=== PATIENT | male | born 2000 | race Caucasian/White ===

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

== ENCOUNTER 2021-04-21 10:40 | Emergency (ER) | payer BC ==
[2021-04-21 10:56] VITALS: RESP 18; TEMP 97.9
[2021-04-21 11:07] VITALS: BP 134/82; PULSE 76
--- NOTE | 2021-04-21 11:08 | ED ---
Arrhythmia/Palpitations HPI - General Chief Complaint: Arrhythmia/Palpitations Stated Complaint: Chest Pain Time Seen by Provider: 04/21/21 10:40 Source: patient, EMS, RN notes reviewed Mode of arrival: EMS Limitations: no limitations - History of Present Illness Initial Comments: 20-year-old male history of testicular cancer left side the past with one round of chemotherapy about a year ago sitting in class today nursing is going started developing limitations. Also increased heart rate. He was sent here for evaluation. Currently he is feeling improved he still feels some palpitations. No recent fevers chills nausea vomiting sweats MD Complaint: rapid heart beat, palpitations - Related Data Previous Rx's Medication Instructions Recorded Ibuprofen 800 mg PO Q6HR PRN #20 tablet 04/21/21 Allergies Allergy/AdvReac Type Severity Reaction Status Date / Time No Known Allergies Allergy Verified 04/21/21 11:58 Review of Systems ROS Statement: Those systems with pertinent positive or pertinent negative responses have been documented in the HPI. ROS Other: All systems not noted in ROS Statement are negative. Past Medical History Additional Past Medical History / Comment(s): left testicular CA History of Any Multi-Drug Resistant Organisms: None Reported Additional Past Surgical History / Comment(s): Left orchiectomy, R. ACL surgery Past Psychological History: No Psychological Hx Reported Smoking Status: Never smoker Past Alcohol Use History: None Reported Past Drug Use History: None Reported General Exam - General Exam Comments Initial Comments: This a well-developed well-nourished awake alert oriented times 3 male Limitations: no limitations General appearance: alert, anxious Head exam: Present: atraumatic, normocephalic, normal inspection Eye exam: Present: normal appearance, PERRL, EOMI. Absent: scleral icterus, conjunctival injection, periorbital swelling ENT exam: Present: normal exam, mucous membranes moist Neck exam: Present: normal inspection. Absent: tenderness, meningismus, lymphadenopathy Respiratory exam: Present: normal lung sounds bilaterally, chest wall tenderness. Absent: respiratory distress, wheezes, rales, rhonchi, stridor Cardiovascular Exam: Present: regular rate, normal rhythm, normal heart sounds. Absent: systolic murmur, diastolic murmur, rubs, gallop, clicks GI/Abdominal exam: Present: soft, normal bowel sounds. Absent: distended, tenderness, guarding, rebound, rigid Extremities exam: Present: normal inspection, full ROM, normal capillary refill. Absent: tenderness, pedal edema, joint swelling, calf tenderness Back exam: Present: normal inspection Neurological exam: Present: alert, oriented X3, CN II-XII intact Psychiatric exam: Present: normal affect, normal mood Skin exam: Present: warm, dry, intact, normal color. Absent: rash Course Vital Signs 04/21/21 04/21/21 10:49 11:06 Temperature 97.9 F Pulse Rate 100 76 Respiratory 18 18 Rate Blood Pressure 140/80 134/82 O2 Sat by Pulse 100 100 Oximetry Medical Decision Making - Medical Decision Making I did discuss [employer] the patient family patient's presentation consistent with costochondritis. He'll be placed on appropriate anti-inflammatory medication and did discuss this with him and his family. - Lab Data Result diagrams: 04/21/21 11:04 04/21/21 11:04 Lab Results 04/21/21 04/21/21 04/21/21 Range/Units 11:04 11:04 11:04 WBC 5.2 (4.0-11.0) k/uL RBC 4.91 (4.30-5.90) m/uL Hgb 15.4 (13.0-17.5) gm/dL Hct 46.2 (39.0-53.0) % MCV 94.2 (80.0-100.0) fL MCH 31.4 (25.0-35.0) pg MCHC 33.4 (31.0-37.0) g/dL RDW 11.8 (11.5-15.5) % Plt Count 197 (150-450) k/uL MPV 8.5 Neutrophils % 59 % Lymphocytes % 31 % Monocytes % 5 % Eosinophils % 2 % Basophils % 1 % Neutrophils # 3.1 (1.3-7.7) k/uL Lymphocytes # 1.6 (1.0-4.8) k/uL Monocytes # 0.3 (0-1.0) k/uL Eosinophils # 0.1 (0-0.7) k/uL Basophils # 0.0 (0-0.2) k/uL PT 12.1 H (9.0-12.0) sec INR 1.2 H (<1.2) APTT 24.0 (22.0-30.0) sec D-Dimer <0.17 (<0.60) mg/L FEU Sodium 138 (137-145) mmol/L Potassium 4.3 (3.5-5.1) mmol/L Chloride 103 (98-107) mmol/L Carbon Dioxide 24 (22-30) mmol/L Anion Gap 11 mmol/L BUN 17 (9-20) mg/dL Creatinine 1.05 (0.66-1.25) mg/dL Est GFR (CKD-EPI)AfAm >90 (>60 ml/min/1.73 sqM) Est GFR (CKD-EPI)NonAf >90 (>60 ml/min/1.73 sqM) Glucose 104 H (74-99) mg/dL Calcium 10.1 (8.4-10.2) mg/dL Magnesium 1.8 (1.6-2.3) mg/dL Total Bilirubin 0.9 (0.2-1.3) mg/dL AST 25 (17-59) U/L ALT 16 (4-49) U/L Alkaline Phosphatase 73 (38-126) U/L Troponin I (0.000-0.034) ng/mL Total Protein 7.6 (6.3-8.2) g/dL Albumin 4.6 (3.5-5.0) g/dL TSH 2.770 (0.465-4.680) mIU/L 04/21/21 Range/Units 11:04 WBC (4.0-11.0) k/uL RBC (4.30-5.90) m/uL Hgb (13.0-17.5) gm/dL Hct (39.0-53.0) % MCV (80.0-100.0) fL MCH (25.0-35.0) pg MCHC (31.0-37.0) g/dL RDW (11.5-15.5) % Plt Count (150-450) k/uL MPV Neutrophils % % Lymphocytes % % Monocytes % % Eosinophils % % Basophils % % Neutrophils # (1.3-7.7) k/uL Lymphocytes # (1.0-4.8) k/uL Monocytes # (0-1.0) k/uL Eosinophils # (0-0.7) k/uL Basophils # (0-0.2) k/uL PT (9.0-12.0) sec INR (<1.2) APTT (22.0-30.0) sec D-Dimer (<0.60) mg/L FEU Sodium (137-145) mmol/L Potassium (3.5-5.1) mmol/L Chloride (98-107) mmol/L Carbon Dioxide (22-30) mmol/L Anion Gap mmol/L BUN (9-20) mg/dL Creatinine (0.66-1.25) mg/dL Est GFR (CKD-EPI)AfAm (>60 ml/min/1.73 sqM) Est GFR (CKD-EPI)NonAf (>60 ml/min/1.73 sqM) Glucose (74-99) mg/dL Calcium (8.4-10.2) mg/dL Magnesium (1.6-2.3) mg/dL Total Bilirubin (0.2-1.3) mg/dL AST (17-59) U/L ALT (4-49) U/L Alkaline Phosphatase (38-126) U/L Troponin I <0.012 (0.000-0.034) ng/mL Total Protein (6.3-8.2) g/dL Albumin (3.5-5.0) g/dL TSH (0.465-4.680) mIU/L - EKG Data -: EKG Interpreted by De EKG shows normal: sinus rhythm EKG Comments: Sinus rhythm with sinus arrhythmia rightward axis rate 86. Interval 158 QRS 90 QT/QTC 338/[address]-T wave changes - Radiology Data Radiology results: report reviewed (Imaging reviewed no acute findings), image reviewed Disposition Clinical Impression: Costochondritis, acute, Palpitations Disposition: HOME SELF-CARE Condition: Good Instructions (If sedation given, give patient instructions): Heart Palpitations (ED), Costochondritis (ED) Prescriptions: Ibuprofen 800 mg PO Q6HR PRN #20 tablet PRN Reason: Pain Is patient prescribed a controlled substance at d/c from ED?: No Referrals: Rashuan Gamez MD [Primary Care Provider] - 1-2 days
[2021-04-21 11:16] LABS: Basophils % (A) 1 %; Eosinophils # (A) 0.1 k/uL (0-0.7); Eosinophils % (A) 2 %; HCT 46.2 % (39.0-53.0); HGB 15.4 gm/dL (13.0-17.5); Lymphocytes # (A) 1.6 k/uL (1.0-4.8); Lymphocytes % (A) 31 %; MCH 31.4 pg (25.0-35.0); MCHC 33.4 g/dL (31.0-37.0); MCV 94.2 fL (80.0-100.0); Mean Platelet Volume 8.5; Monocytes # (A) 0.3 k/uL (0-1.0); Monocytes % (A) 5 %; Neutrophils # (A) 3.1 k/uL (1.3-7.7); Neutrophils % (A) 59 %; Platelet Count 197 k/uL (150-450); RBC 4.91 m/uL (4.30-5.90); RDW 11.8 % (11.5-15.5); WBC 5.2 k/uL (4.0-11.0)
[2021-04-21 11:29] LABS: ALT 16 U/L (4-49); AST 25 U/L (17-59); African American GFR (CKD) >90 (>60 ml/min/1.73 sqM); Albumin 4.6 g/dL (3.5-5.0); Alkaline Phosphatase 73 U/L (38-126); Anion Gap 11 mmol/L; Blood Urea Nitrogen 17 mg/dL (9-20); Calcium 10.1 mg/dL (8.4-10.2); Carbon Dioxide 24 mmol/L (22-30); Chloride 103 mmol/L (98-107); Glucose 104 mg/dL (74-99); Magnesium 1.8 mg/dL (1.6-2.3); Non-African American GFR(CKD) >90 (>60 ml/min/1.73 sqM); Potassium 4.3 mmol/L (3.5-5.1); Sodium 138 mmol/L (137-145); Total Bilirubin 0.9 mg/dL (0.2-1.3); Total Protein 7.6 g/dL (6.3-8.2)
[2021-04-21 11:30] LABS: INR 1.2 (<1.2); Prothrombin Time 12.1 sec (9.0-12.0)
--- NOTE | 2021-04-21 11:53 | XR ---
EXAMINATION TYPE: XR chest 2V DATE OF EXAM: 04/21/2021 COMPARISON: NONE TECHNIQUE: PA and lateral views submitted. HISTORY: Chest pain FINDINGS: The lungs are clear and there is no pneumothorax, pleural effusion, or focal pneumonia. Heart size normal. No overt failure. IMPRESSION: 1. No acute process.
[2021-04-21] MEDS ORDERED: KETOROLAC 15 MG/ML 1 ML VIAL IVP STA (12:46)
== END 2021-04-21 13:19 | disposition home or self-care (01) ==
LOC: EC 10:40
DX: M94.0 Chondrocostal junction syndrome [Tietze] (principal); R00.2 Palpitations; Z79.1 Long term (current) use of non-steroidal anti-inflammatories (NSAID); Z85.47 Personal history of malignant neoplasm of testis
CPT/HCPCS: 36415; 93005; 85379; 80053; 84443; 83735; 84484; 85025; 85610; 85730; 71046; 99285; 96374; J1885

== ENCOUNTER → 2021-12-24 | Outpatient (CLI) | payer BC ==
--- NOTE | 2021-12-24 13:12 | CT ---
EXAMINATION TYPE: CT ChestAbdPelvis w con DATE OF EXAM: 12/24/2021 COMPARISON: 12/28/2020, 04/15/2020 HISTORY: 21-year-old male C62.12, follow-up Testicular Cancer. Status post left orchiectomy. TECHNIQUE: Contiguous axial scanning of the chest, abdomen, and pelvis performed with IV Contrast, pa tient injected with 70 mL of Isovue 300. Delayed images through the kidneys were obtained. Coronal/sa gittal reconstructions performed. CT DLP: 1298 mGycm Automated exposure control for dose reduction was used. FINDINGS: CHEST: Heart normal size without pericardial effusion. Aorta normal caliber with conventional arthrosis of right anatomy. No thoracic lymphadenopathy by CT size criteria. Lungs show no consolidation or pleural effusion. No suspicious pulmonary nodules. ABDOMEN: Portal venous system is patent. No biliary ductal dilatation. No focal liver lesion. Gallbladder, adrenal glands, kidneys, spleen, and pancreas within normal limits. No dilated small bowel, free fluid, or free air. No mesenteric or retroperitoneal lymphadenopathy. So me scattered nonenlarged or prominent mesenteric lymph nodes measuring up to 6 mm, for example, coron al image 35, are stable to smaller from prior exam. Normal appendix. Oral contrast extends to the mid transverse colon. Mild overall stool burden. No per icolonic inflammatory change. PELVIS: Bladder urine distended. Status post left orchiectomy. No pelvic lymphadenopathy. Incidentally, there appears to be trace free fluid in the pelvis, axial image 135 and sagittal image 58. Etiology unclea r. Possible mild wall thickening versus nondistention of the rectum. BONES: Scattered small endplate Schmorl's nodes mid and lower thoracic spine. No osseous destructive process . IMPRESSION: 1. INCIDENTALLY, THERE IS TRACE FREE FLUID WITHIN THE PELVIS. ETIOLOGY UNCLEAR. POSSIBLE THICKENING V ERSUS NONDISTENTION OF THE RECTUM. QUERY ANY SIGNS/SYMPTOMS OF A NONSPECIFIC COLITIS. 2. STATUS POST LEFT ORCHIECTOMY. NO SUSPICIOUS MASS OR LYMPHADENOPATHY TO SUGGEST RECURRENT/METASTATI C DISEASE.
== END | disposition home or self-care (01) ==
LOC: RADCTMAIN 08:44
PROVIDERS: ATTEND Internal Medicine Hematology & Oncology
DX: C62.12 Malignant neoplasm of descended left testis (principal); Z90.79 Acquired absence of other genital organ(s)
CPT/HCPCS: 71260; 74177; Q9967 ×2

== ENCOUNTER → 2023-01-24 | Outpatient (CLI) | payer BC ==
--- NOTE | 2023-01-24 10:44 | CT ---
EXAMINATION TYPE: CT ChestAbdPelvis w con DATE OF EXAM: 01/24/2023 COMPARISON: 12/24/2021 and 12/28/2020 HISTORY: 22-year-old male C62.12, testicular cancer. TECHNIQUE: Contiguous axial scanning of the chest, abdomen, and pelvis performed with IV Contrast, pa tient injected with 100 mL of Isovue 300. Delayed images through the kidneys were obtained. Coronal/s agittal reconstructions performed. CT DLP: 645.5 mGycm Automated exposure control for dose reduction was used. FINDINGS: Chest: Heart normal size without pericardial effusion. Aorta normal caliber with conventional arch vessel branching anatomy. Some minimal residual thymic tissue in the anterior mediastinum compatible patient's younger age. Tra ce bilateral gynecomastia noted. No thoracic lymphadenopathy by CT size criteria. Lungs show no consolidation or pleural effusion. No suspicious pulmonary nodules. ABDOMEN: No focal liver lesion or biliary ductal dilatation. Portal venous system is patent. Gallbladder, adrenal glands, kidneys, spleen, and pancreas is within normal limits. No dilated small bowel, free fluid, or free air. Scattered nonenlarged mesenteric lymph nodes. Some are borderline in size 9 mm but appear to have bee n present previously. No retroperitoneal adenopathy seen. Normal appendix. Mild to moderate stool burden. Oral contrast progressed to the splenic flexure of co skyler. No pericolonic inflammatory change. Pelvis: Mild circumferential bladder wall thickening. Prostate gland is mildly enlarged at 4.9 cm wide. No ab normal fluid collection in the pelvis or pelvic lymphadenopathy. There appears to have been left orch iectomy. Bones: No osseous destructive process. IMPRESSION: 1. STATUS POST LEFT ORCHIECTOMY. 2. NO EVIDENCE FOR METASTATIC DISEASE IN THE CHEST, ABDOMEN, OR PELVIS. 3. SOME BLADDER WALL THICKENING COULD REFLECT CYSTITIS OR BLADDER WALL HYPERTROPHY. THE PROSTATE GLAN D DOES APPEAR MILDLY ENLARGED AT 4.9 CM WIDE. CLINICALLY CORRELATE.
== END | disposition home or self-care (01) ==
LOC: RADCTMAIN 08:12
PROVIDERS: ATTEND Internal Medicine Hematology & Oncology
DX: C62.12 Malignant neoplasm of descended left testis (principal); N40.0 Benign prostatic hyperplasia without lower urinary tract symptoms; Z90.79 Acquired absence of other genital organ(s)
CPT/HCPCS: 71260; 74177; Q9967

== ENCOUNTER → 2024-10-28 | Outpatient (CLI) | payer BC ==
--- NOTE | 2024-10-28 20:15 | MR ---
INDICATION: Patient age:Male; 24 years old; Reason for study: C62.12; [facility]. Headaches, history of testicular cancer. COMPARISON: None. TECHNIQUE: Multi planar, multi sequence imaging was performed through the brain. The patient was then given 10 cc of Gadobutrol intravenously and multi planar, T1 fat-saturation images were obtained. FINDINGS: The romano-white junctions, ventricular system, basal cisterns appear unremarkable. Age-appropriate cer ebral parenchymal volume. Diffusion-weighted imaging shows no evidence of restricted diffusion to sug gest acute/subacute infarct. Intracranial arterial flow voids are maintained. Midline structures show no abnormality. Right frontal subcortical 5 mm hypertense FLAIR signal focus with additional right p arietal subcortical white matter hyperdense FLAIR signal focus. The susceptibility weighted images do not reveal any evidence for micro-hemorrhage. Incidental developmental venous anomaly within the pos terior left frontal lobe. After administration of gadolinium, no abnormal enhancing lesion identified . The bone marrow signal is within normal limits. The globes are unremarkable. Moderate mucosal thick ening of the right maxillary sinus. Moderate mucosal thickening of the bilateral ethmoid sinuses. Mil d mucosal thickening of the inferior left maxillary sinus. Trace left mastoid effusion. IMPRESSION: 1. No evidence of intracranial mass, acute/subacute infarct, or abnormal enhancement. 2. Couple of nonspecific right frontal and right parietal white matter hyperintense FLAIR signal foci . Etiologies include chronic migraine versus demyelinating disease versus small vessel ischemic disea se as etiologies. No corresponding contrast enhancement to suggest active demyelination. 3. Paranasal sinus disease which is most prominent within the right maxillary and ethmoid sinuses. [facility], , 10/28/2024 8:12 PM
== END | disposition home or self-care (01) ==
LOC: RADMRIMAIN 18:31
PROVIDERS: ATTEND Internal Medicine Hematology & Oncology
DX: C62.12 Malignant neoplasm of descended left testis (principal); R90.82 White matter disease, unspecified; J34.89 Other specified disorders of nose and nasal sinuses
CPT/HCPCS: 70553; A9585